=== PATIENT | male | born 1975 | race Caucasian/White ===

== ENCOUNTER 2017-05-05 18:14 | Outpatient (CLI) | payer MEDICARE, MEDICAID | END 2017-05-05 18:15 | disposition critical access hospital (66) | LOC: EMS 18:14 | PROVIDERS: ATTEND Surgery | DX: R56.9 Unspecified convulsions (principal) | CPT/HCPCS: A0425; A0429 ==

== ENCOUNTER 2017-05-05 19:00 | Emergency (ER) | payer MEDICARE, MEDICAID ==
--- NOTE | 2017-05-05 19:47 | ED Physician Documentation ---
PD HPI SEIZURE - Stated complaint Stated Complaint: SZ - Chief complaint Chief Complaint: Neuro - History obtained from History obtained from: Patient, Family - History of Present Illness Timing - onset: Other (42-year-old gentleman with long-standing seizure disorder , previously on Dilantin, was changed to Lamictal because of concern for long- term health effects of Dilantin. Recently he has been having some rare side effects of Lamictal and he is going back up on his Dilantin intent coming down on the Lamictal. Last dose adjustment was about 2 months ago, currently on Lamictal 100 mg twice a day, and Dilantin 200 mg in the morning, 100 mg in the evening. He also takes Diamox. His neurologist is Dr. Guzmán in [place]. Today had a single tonic-clonic seizure while in the car. There was no injury. He now feels fine. His last seizure was 1995.) Review of Systems Constitutional: denies: Fever, Chills Nose: denies: Rhinorrhea / runny nose, Congestion, Epistaxis Cardiac: denies: Chest pain / pressure, Palpitations Respiratory: denies: Dyspnea, Cough GI: denies: Abdominal Pain PD PAST MEDICAL HISTORY - Past Medical History Past Medical History: Yes Cardiovascular: None Respiratory: None Neuro: Seizure disorder Endocrine/Autoimmune: None GI: None, Other : None HEENT: None Psych: None Musculoskeletal: None Derm: None - Past Surgical History Past Surgical History: Yes General: Appendectomy - Present Medications Home Medications: Ambulatory Orders Medication Instructions Recorded Confirmed Phenytoin [Dilantin] 300 mg PO DAILY 05/05/17 05/05/17 acetaZOLAMIDE [Diamox] 250 mg PO BID 05/05/17 05/05/17 lamoTRIgine [LaMICtal] 100 mg PO BID 05/05/17 05/05/17 - Allergies Allergies/Adverse Reactions: Allergies Allergy/AdvReac Type Severity Reaction Status Date / Time aspirin Allergy Unknown Verified 05/05/17 19:08 phenobarbital Allergy Unknown Verified 05/05/17 19:08 - Social History Does the pt smoke?: No Smoking Status: Never smoker Does the pt drink ETOH?: No Does the pt have substance abuse?: No PD ED PE NORMAL - Vitals Vital signs reviewed: Yes - General General: Alert and oriented X 3, No acute distress - HEENT HEENT: EOMI, Pharynx benign - Neck Neck: Supple, no meningeal sign, No bony TTP, No bruit - Cardiac Cardiac: RRR, No murmur - Respiratory Respiratory: Clear bilaterally - Abdomen Abdomen: Non tender - Neuro Neuro: Alert and oriented X 3, director of logistics 2-12 intact, No motor deficit, No sensory deficit, Normal speech - Psych Psych: Normal mood, Normal affect Results - Vitals Vitals: Vital Signs - 24 hr 05/05/17 19:03 Temperature 36.8 C Heart Rate 93 Respiratory 18 Rate Blood Pressure 146/95 H O2 Saturation 98 Oxygen O2 Source Room air - Labs Labs: Laboratory Tests 05/05/17 19:31 Sodium 137 Potassium 3.9 Chloride 111 Carbon Dioxide 20 L Anion Gap 6.0 BUN 19 Creatinine 0.9 Estimated GFR (MDRD) 92 Glucose 112 H Calcium 8.6 Phenytoin 10.3 PD MEDICAL DECISION MAKING - ED course ED course: The audio visual secretary tried to call Dr. Guzmán's group, however they refused to take call from us despite being notified that it was their established patient. As such the patient is advised to call him tomorrow for further guidance. Departure - Departure Disposition: 01 Home, Self Care Clinical Impression: Seizure Condition: Good Record reviewed to determine appropriate education?: Yes Instructions: ED Seizure Recurrent Comments: We were unable to get a hold of your neurologist todd. Call him in the morning. Let him know that your Dilantin level was 10.3. Do not drive for 6 months or until cleared by your neurologist. Your blood pressure was elevated today on check into the emergency department. This does not mean that you have hypertension, it is a common phenomenon to come to the emergency department and have elevated blood pressure. I recommend that she see her primary care physician within the week to have it rechecked when you are feeling better.
[2017-05-05 19:49] LABS: CALCIUM 8.6 mg/dL (8.5-10.3); CREATININE 0.9 mg/dL (0.6-1.2); POTASSIUM 3.9 mmol/L (3.5-5.0)
[2017-05-05 20:14] VITALS: BP 126/89
[2017-05-05] MEDS ORDERED: PHENYTOIN ER 100 MG CAPSULE PO STA (20:16)
[2017-05-05] MEDS ORDERED: PHENYTOIN ER 100 MG CAPSULE ONE (20:21)
== END 2017-05-05 20:25 | disposition home or self-care (01) ==
LOC: EDUNIT# → ED 19:00
DX: G40.909 Epilepsy, unspecified, not intractable, without status epilepticus (principal); R03.0 Elevated blood-pressure reading, without diagnosis of hypertension
CPT/HCPCS: 36415; 80048; 80185; 99284; A9270

== ENCOUNTER 2017-06-08 13:21 | Outpatient (CLI) | payer MEDICARE, MEDICAID | END 2017-06-08 13:22 | disposition home or self-care (01) | LOC: LAB.S 13:21 | PROVIDERS: ATTEND Psychiatry & Neurology Neurology | DX: R56.9 Unspecified convulsions (principal) | CPT/HCPCS: 36415; 80185 ==

== ENCOUNTER 2018-05-06 16:36 | Outpatient (CLI) | payer MEDICARE, MEDICAID | END 2018-05-06 16:37 | disposition home or self-care (01) | LOC: LAB 16:36 | PROVIDERS: ATTEND Psychiatry & Neurology Neurology | DX: G40.109 Localization-related (focal) (partial) symptomatic epilepsy and epileptic syndromes with simple partial seizures, not intractable, without status epilepticus (principal) | CPT/HCPCS: 36415; 80185 ==

== ENCOUNTER 2018-11-30 14:49 | Outpatient (CLI) | payer MEDICARE | END 2018-11-30 14:50 | disposition home or self-care (01) | LOC: LAB 14:49 | PROVIDERS: ATTEND Physician Assistant | DX: G40.109 Localization-related (focal) (partial) symptomatic epilepsy and epileptic syndromes with simple partial seizures, not intractable, without status epilepticus (principal); Z01.818 Encounter for other preprocedural examination | CPT/HCPCS: 36415; 80299; 93005 ==

== ENCOUNTER 2019-04-15 08:27 | Outpatient (CLI) | payer MEDICARE ==
[2019-04-18 16:56] LABS: LAMOTRIGINE 2.1 mcg/mL (4.0-18.0)
[2019-04-19 22:52] LABS: LACOSAMIDE 1.6 mcg/mL
== END 2019-04-15 08:28 | disposition home or self-care (01) ==
LOC: LAB 08:27
PROVIDERS: ATTEND Psychiatry & Neurology Neurology
DX: G40.109 Localization-related (focal) (partial) symptomatic epilepsy and epileptic syndromes with simple partial seizures, not intractable, without status epilepticus (principal); E55.9 Vitamin D deficiency, unspecified
CPT/HCPCS: 36415; 80175; 80185; 80299; 82306

== ENCOUNTER 2019-11-24 09:51 | Outpatient (CLI) | payer MEDICARE ==
--- NOTE | 2019-11-25 09:58 | DEXA Report ---
Reason: OSTEOPENIA Procedure Date: 11/24/2019 Accession Number: [id number] / [id number] Procedure: DEX - Dexa Spine and/or Hip CPT Code: Final Report FULL RESULT: EXAM: Dexa Spine and/or Hip DATE: 11/24/2019 11:36 AM CLINICAL HISTORY: OSTEOPENIA TECHNIQUE: Dual energy x-ray absorptiometry (DXA) was performed on a [employer] System. Regions measured are the AP Spine, femoral neck, and if needed forearm. COMPARISON: None. In accordance with the International Society for Clinical Densitometry (ISCD) guidelines, data from previous exams may be reanalyzed using current recommendations and techniques. This is done to allow a more accurate basis for comparison with the current study. FINDINGS: The data for the lumbar spine is as follows: BMD (g/cm/cm) T-SCORE Z-SCORE REGION L1 1.021 -1.2 -1.1 L2 1.079 -1.3 -1.3 L3 1.085 -1.3 -1.3 L4 0.998 -2.0 -2.0 TOTAL 1.042 -1.5 -1.5 NOTE: All evaluable vertebrae are used for classification The data for the hip is as follows: BMD (g/cm/cm) T-SCORE Z-SCORE REGION Neck 0.899 -1.3 -0.9 TOTAL 0.908 -1.3 -1.1 NOTE: The femoral neck or total proximal femur, whichever is lowest, is used for classification. IMPRESSION: THE WHO CLASSIFICATION BASED ON THE INTERNATIONAL REFERENCE STANDARD IS OSTEOPENIA. THE FRACTURE RISK IS INCREASED. RECOMMENDATION: Patients with diagnosis of osteoporosis or osteopenia should have regular bone mineral density assessment. For those eligible for Medicare, routine testing is allowed once every 2 years. Testing frequency can be increased for patients who have rapidly progressing disease or for those who are receiving medical therapy to restore bone mass. COMMENT: World Health Organization (WHO) definitions for osteoporosis and osteopenia: NORMAL BMD: T-score at -1.0 or higher, fracture risk is low OSTEOPENIA BMD: T-score between -1.0 and -2.5, fracture risk is increased. OSTEOPOROSIS BMD: T-score at -2.5 or lower, fracture risk is high. National Osteoporosis Foundation recommends: 1. Obtain adequate dietary calcium (at least 1200 mg per day) and vitamin D (400-800 international units per day). 2. Participate, as appropriate, in regular weightbearing and muscle-strengthening exercise. 3. Avoid tobacco use and reduce alcohol and caffeine intake. 4. For more detailed information see the website at www.NOF.org.
== END 2019-11-24 09:52 | disposition home or self-care (01) ==
LOC: DI 09:51
PROVIDERS: ATTEND Registered Nurse
DX: M85.89 Other specified disorders of bone density and structure, multiple sites (principal)
CPT/HCPCS: 77080

== ENCOUNTER 2020-04-04 18:03 | Outpatient (CLI) | payer MEDICARE ==
[2020-04-04 20:31] LABS: BASOPHILS # (AUTO) 0.1 10^3/uL (0.0-0.1); BASOPHILS % (AUTO) 0.8 %; EOSINOPHILS # (AUTO) 0.2 10^3/uL (0.0-0.7); EOSINOPHILS % (AUTO) 2.7 %; LYMPHOCYTES # (AUTO) 1.6 10^3/uL (1.5-3.5); LYMPHOCYTES % (AUTO) 25.8 %; MEAN CORPUSCULAR HEMOGLOBIN 30.5 pg (27.0-31.0); MEAN CORPUSCULAR HGB CONC 33.6 g/dL (32.0-36.0); MEAN PLATELET VOLUME 9.9 fL (7.4-11.4); MONOCYTES # (AUTO) 0.6 10^3/uL (0.0-1.0); NEUTROPHILS # (AUTO) 3.8 10^3/uL (1.5-6.6); NEUTROPHILS % (AUTO) 60.7 %; PLT - PLATELET COUNT 255 10^3/uL (130-450); RED BLOOD COUNT 4.91 10^6/uL (4.70-6.10); RED CELL DISTRIBUTION WIDTH 12.5 % (12.0-15.0); WHITE BLOOD COUNT 6.2 x10^3/uL (4.8-10.8)
[2020-04-04 20:38] LABS: ALBUMIN 4.7 g/dL (3.2-5.5); ALBUMIN/GLOBULIN RATIO 1.5 (1.0-2.2); BILIRUBIN,TOTAL 0.6 mg/dL (0.2-1.0); CALCIUM 8.4 mg/dL (8.5-10.3); CREATININE 0.9 mg/dL (0.6-1.2); TOTAL PROTEIN 7.8 g/dL (6.7-8.2)
== END 2020-04-04 18:04 | disposition home or self-care (01) ==
LOC: LAB.S 18:03
PROVIDERS: ATTEND Psychiatry & Neurology Neurology
DX: G40.919 Epilepsy, unspecified, intractable, without status epilepticus (principal); Z51.81 Encounter for therapeutic drug level monitoring; G40.109 Localization-related (focal) (partial) symptomatic epilepsy and epileptic syndromes with simple partial seizures, not intractable, without status epilepticus; Z79.899 Other long term (current) drug therapy
CPT/HCPCS: 36415; 80053; 80175; 80299; 85025

== ENCOUNTER 2020-04-13 18:05 | Outpatient (CLI) | payer MEDICARE ==
[2020-04-13 20:31] LABS: BASOPHILS % (AUTO) 0.6 %; EOSINOPHILS # (AUTO) 0.2 10^3/uL (0.0-0.7); EOSINOPHILS % (AUTO) 2.2 %; HGB - HEMOGLOBIN 15.3 g/dL (14.0-18.0); LYMPHOCYTES # (AUTO) 1.6 10^3/uL (1.5-3.5); LYMPHOCYTES % (AUTO) 23.6 %; MEAN CORPUSCULAR HEMOGLOBIN 30.2 pg (27.0-31.0); MEAN CORPUSCULAR HGB CONC 33.3 g/dL (32.0-36.0); MEAN CORPUSCULAR VOLUME 90.5 fL (80.0-94.0); MEAN PLATELET VOLUME 9.9 fL (7.4-11.4); MONOCYTES # (AUTO) 0.5 10^3/uL (0.0-1.0); MONOCYTES % (AUTO) 7.5 %; NEUTROPHILS # (AUTO) 4.5 10^3/uL (1.5-6.6); NEUTROPHILS % (AUTO) 65.2 %; PLT - PLATELET COUNT 259 10^3/uL (130-450); RED BLOOD COUNT 5.07 10^6/uL (4.70-6.10); RED CELL DISTRIBUTION WIDTH 12.4 % (12.0-15.0)
[2020-04-13 20:40] LABS: ALBUMIN 4.5 g/dL (3.2-5.5); ALBUMIN/GLOBULIN RATIO 1.4 (1.0-2.2); BILIRUBIN,TOTAL 0.6 mg/dL (0.2-1.0); CALCIUM 8.6 mg/dL (8.5-10.3); TOTAL PROTEIN 7.8 g/dL (6.7-8.2)
[2020-04-13 20:57] LABS: THYROID STIMULATING HORMONE 2.61 uIU/mL (0.34-5.60)
[2020-04-13 20:59] LABS: FREE T4 (FREE THYROXINE) 0.69 ng/dL (0.58-1.64)
== END 2020-04-13 18:06 | disposition home or self-care (01) ==
LOC: LAB.S 18:05
PROVIDERS: ATTEND Psychiatry & Neurology Neurology
DX: Z51.81 Encounter for therapeutic drug level monitoring (principal); G40.109 Localization-related (focal) (partial) symptomatic epilepsy and epileptic syndromes with simple partial seizures, not intractable, without status epilepticus; E03.9 Hypothyroidism, unspecified; Z79.899 Other long term (current) drug therapy; G40.919 Epilepsy, unspecified, intractable, without status epilepticus
CPT/HCPCS: 36415; 80053; 80175; 80299; 84439; 84443; 85025

== ENCOUNTER 2020-12-28 18:27 | Outpatient (CLI) | payer MEDICARE ==
[2020-12-28 20:10] LABS: BASOPHILS % (AUTO) 0.6 %; EOSINOPHILS # (AUTO) 0.2 10^3/uL (0.0-0.7); EOSINOPHILS % (AUTO) 3.5 %; HCT - HEMATOCRIT 45.9 % (42.0-52.0); HGB - HEMOGLOBIN 15.3 g/dL (14.0-18.0); LYMPHOCYTES # (AUTO) 1.6 10^3/uL (1.5-3.5); LYMPHOCYTES % (AUTO) 25.4 %; MEAN CORPUSCULAR HEMOGLOBIN 29.8 pg (27.0-31.0); MEAN CORPUSCULAR HGB CONC 33.3 g/dL (32.0-36.0); MEAN CORPUSCULAR VOLUME 89.5 fL (80.0-94.0); MEAN PLATELET VOLUME 9.8 fL (7.4-11.4); MONOCYTES # (AUTO) 0.6 10^3/uL (0.0-1.0); NEUTROPHILS # (AUTO) 3.8 10^3/uL (1.5-6.6); NEUTROPHILS % (AUTO) 60.7 %; PLT - PLATELET COUNT 275 10^3/uL (130-450); RED BLOOD COUNT 5.13 10^6/uL (4.70-6.10); RED CELL DISTRIBUTION WIDTH 12.4 % (12.0-15.0); WHITE BLOOD COUNT 6.3 x10^3/uL (4.8-10.8)
[2020-12-28 20:20] LABS: ALBUMIN 4.6 g/dL (3.2-5.5); ALBUMIN/GLOBULIN RATIO 1.6 (1.0-2.2); BILIRUBIN,TOTAL 0.5 mg/dL (0.2-1.0); CALCIUM 8.8 mg/dL (8.5-10.3); CREATININE 0.9 mg/dL (0.6-1.2); POTASSIUM 3.9 mmol/L (3.5-5.0); TOTAL PROTEIN 7.5 g/dL (6.7-8.2)
[2021-01-03 08:41] LABS: LACOSAMIDE 1.6 mcg/mL
[2021-01-03 19:16] LABS: LAMOTRIGINE 2.5 mcg/mL (4.0-18.0)
== END 2020-12-28 18:28 | disposition home or self-care (01) ==
LOC: LAB.S 18:27
PROVIDERS: ATTEND Psychiatry & Neurology Neurology
DX: G40.109 Localization-related (focal) (partial) symptomatic epilepsy and epileptic syndromes with simple partial seizures, not intractable, without status epilepticus (principal); Z51.81 Encounter for therapeutic drug level monitoring; E55.9 Vitamin D deficiency, unspecified; Z79.899 Other long term (current) drug therapy
CPT/HCPCS: 36415; 80053; 80175; 80186; 80299; 81599; 82306; 85025

== ENCOUNTER 2022-09-30 13:40 | Outpatient (CLI) | payer MEDICARE ==
[2022-10-03 14:08] LABS: LAMOTRIGINE (LAMICTAL) 5.1 ug/mL (2.0-20.0)
== END 2022-09-30 13:41 | disposition home or self-care (01) ==
LOC: LAB.S 13:40
PROVIDERS: ATTEND Psychiatry & Neurology Neurology
DX: G40.109 Localization-related (focal) (partial) symptomatic epilepsy and epileptic syndromes with simple partial seizures, not intractable, without status epilepticus (principal)
CPT/HCPCS: 36415; 80175; 80185; 80235

== ENCOUNTER 2023-02-10 08:13 | Outpatient (CLI) | payer MEDICARE ==
[2023-02-10 14:41] LABS: ALBUMIN 4.1 g/dL (3.2-5.5); ALBUMIN/GLOBULIN RATIO 1.2 (1.0-2.2); BILIRUBIN,TOTAL 0.5 mg/dL (0.2-1.0); CALCIUM 8.4 mg/dL (8.5-10.3); PHENYTOIN (DILANTIN) 26.9 ug/mL; POTASSIUM 4.1 mmol/L (3.5-5.0); TOTAL PROTEIN 7.4 g/dL (6.7-8.2)
[2023-02-10 14:51] LABS: BASOPHILS # (AUTO) 0.1 10^3/uL (0.0-0.1); EOSINOPHILS # (AUTO) 0.2 10^3/uL (0.0-0.7); EOSINOPHILS % (AUTO) 3.6 %; HCT - HEMATOCRIT 46.2 % (42.0-52.0); HGB - HEMOGLOBIN 14.9 g/dL (14.0-18.0); LYMPHOCYTES # (AUTO) 1.6 10^3/uL (1.5-3.5); LYMPHOCYTES % (AUTO) 30.8 %; MEAN CORPUSCULAR HEMOGLOBIN 29.7 pg (27.0-31.0); MEAN CORPUSCULAR HGB CONC 32.3 g/dL (32.0-36.0); MEAN PLATELET VOLUME 9.4 fL (7.4-11.4); MONOCYTES # (AUTO) 0.4 10^3/uL (0.0-1.0); MONOCYTES % (AUTO) 8.4 %; NEUTROPHILS # (AUTO) 2.9 10^3/uL (1.5-6.6); NEUTROPHILS % (AUTO) 55.6 %; PLT - PLATELET COUNT 273 10^3/uL (130-450); RED BLOOD COUNT 5.02 10^6/uL (4.70-6.10); RED CELL DISTRIBUTION WIDTH 12.7 % (12.0-15.0); WHITE BLOOD COUNT 5.2 x10^3/uL (4.8-10.8)
[2023-02-12 18:07] LABS: LACOSAMIDE 1.7 ug/mL (5.0-10.0)
== END 2023-02-10 08:14 | disposition home or self-care (01) ==
LOC: LAB.S 08:13
PROVIDERS: ATTEND Psychiatry & Neurology Neurology
DX: Z51.81 Encounter for therapeutic drug level monitoring (principal); G40.109 Localization-related (focal) (partial) symptomatic epilepsy and epileptic syndromes with simple partial seizures, not intractable, without status epilepticus
CPT/HCPCS: 36415; 80053; 80175; 80185; 80235; 85025

== ENCOUNTER 2023-03-12 07:51 | Outpatient (CLI) | payer MEDICARE ==
[2023-03-16 17:08] LABS: LAMOTRIGINE (LAMICTAL) 3.1 ug/mL (2.0-20.0)
[2023-03-16 22:07] LABS: LACOSAMIDE 2.2 ug/mL (5.0-10.0)
== END 2023-03-12 07:52 | disposition home or self-care (01) ==
LOC: LAB 07:51
PROVIDERS: ATTEND Psychiatry & Neurology Neurology
DX: G40.109 Localization-related (focal) (partial) symptomatic epilepsy and epileptic syndromes with simple partial seizures, not intractable, without status epilepticus (principal)
CPT/HCPCS: 36415; 80175; 80235

== ENCOUNTER 2023-08-19 07:56 | Outpatient (CLI) | payer MEDICARE | END 2023-08-19 07:57 | disposition home or self-care (01) | LOC: LAB.S 07:56 | PROVIDERS: ATTEND Psychiatry & Neurology Neurology | DX: G40.109 Localization-related (focal) (partial) symptomatic epilepsy and epileptic syndromes with simple partial seizures, not intractable, without status epilepticus (principal) | CPT/HCPCS: 36415; 80185; 80235 ==